=== PATIENT | male | born 1955 | race Two or more races ===

== ENCOUNTER 2021-10-07 07:25 | Outpatient (CLI) | payer OTHER | END 2021-10-07 07:27 | disposition home or self-care (01) | LOC: NUCLEAR 07:25 | PROVIDERS: ATTEND Internal Medicine Endocrinology, Diabetes & Metabolism | DX: E05.00 Thyrotoxicosis with diffuse goiter without thyrotoxic crisis or storm (principal) | CPT/HCPCS: 78014; A9512; A9517 ==

== ENCOUNTER 2021-10-08 07:20 | Outpatient (CLI) | payer OTHER | END 2021-10-08 07:21 | disposition home or self-care (01) | LOC: NUCLEAR 07:20 | PROVIDERS: ATTEND Pathology Anatomic Pathology | DX: E05.00 Thyrotoxicosis with diffuse goiter without thyrotoxic crisis or storm (principal) | CPT/HCPCS: 78014; 79005; A9512; A9517 ==